=== PATIENT | female | born 1965 | race American Indian/Alaskan Native ===

== ENCOUNTER 2018-09-06 12:29 | Emergency (ER) | payer MEDICARE ==
[2018-09-06 12:49] VITALS: BP 157/77
--- NOTE | 2018-09-06 13:13 | Emergency Department Report ---
ED Dizziness HPI - General Chief Complaint: Medical Clearance Stated Complaint: DIZZY Time Seen by Provider: 09/06/18 13:01 Source: patient Mode of arrival: Ambulatory Limitations: No Limitations - History of Present Illness Initial Comments: Chief complaint "I had one of my attacks today." HPI Mrs. Pettit is a 53-year-old female who presents with lightheadedness. She explained that during during her group therapy, she felt shaky. She felt unsteady when she walks. She felt lightheaded. She's had these attacks over the last several years every few months or so. No previous history of stroke. She does have a history of hypertension depression bipolar affective disorder dyslipidemia. She is followed by new physician. Recently moved from [facility]. She has been noncompliant with her hypertension medicines. Complaint: lightheadedness -: Sudden Timing: sudden onset Description: lightheadedness History of Same: Yes Severity: mild Improves With: rest Worsens With: nothing Associated Symptoms: denies: chest pain, shortness of breath - Related Data Previous Rx's Medication Instructions Recorded Last Taken Type Losartan [Cozaar] 50 mg PO QDAY 30 Days #30 tablet 09/06/18 Unknown Rx Allergies Allergy/AdvReac Type Severity Reaction Status Date / Time No Known Allergies Allergy Unverified 09/06/18 12:38 ED Review of Systems ROS: Stated complaint: DIZZY Other details as noted in HPI Comment: All other systems reviewed and negative Constitutional: malaise. denies: fever Respiratory: denies: cough Cardiovascular: denies: chest pain Neurological: denies: headache ED Past Medical Hx - Past Medical History Previous Medical History?: Yes Hx Hypertension: Yes Hx Psychiatric Treatment: Yes (DEPRESSION/BI POLAR) Additional medical history: HIGH CHOLESTROL/ NEUROPATHY/ DEPRESSION /REFLUX SHUNT IN ABD AND HEAD - Surgical History Additional Surgical History: WEIGH LOSS SURGERY - Social History Smoking Status: Never Smoker Substance Use Type: None - Medications Home Medications: Home Medications Medication Instructions Recorded Confirmed Last Taken Type Losartan [Cozaar] 50 mg PO QDAY 30 Days #30 tablet 09/06/18 Unknown Rx ED Physical Exam - General Limitations: No Limitations General appearance: alert, in no apparent distress - Head Head exam: Present: atraumatic, normocephalic - Eye Eye exam: Present: normal appearance - ENT ENT exam: Present: mucous membranes moist - Neck Neck exam: Present: normal inspection. Absent: tenderness, meningismus - Respiratory Respiratory exam: Present: normal lung sounds bilaterally. Absent: respiratory distress, wheezes, rales, rhonchi - Cardiovascular Cardiovascular Exam: Present: regular rate, normal rhythm, normal heart sounds. Absent: systolic murmur, diastolic murmur, rubs, gallop - GI/Abdominal GI/Abdominal exam: Present: soft, normal bowel sounds. Absent: distended, tenderness, guarding, rebound - Extremities Exam Extremities exam: Present: normal inspection - Back Exam Back exam: Present: normal inspection - Neurological Exam Neurological exam: Present: alert, oriented X3, normal gait. Absent: motor sensory deficit - Psychiatric Psychiatric exam: Present: normal affect, normal mood - Skin Skin exam: Present: warm, dry, intact, normal color. Absent: rash ED Course Vital Signs 09/06/18 12:42 Temperature 97.6 F Pulse Rate 100 H Respiratory 20 Rate Blood Pressure 157/77 O2 Sat by Pulse 99 Oximetry ED Medical Decision Making - Medical Decision Making Patient presents to [facility]. No indication TIA/CVA/arrhythmia/ACS. Referred to special education professional referred to her personal PCP. I will provide a prescription for home medication losartan. Critical care attestation.: If time is entered above; I have spent that time in minutes in the direct care of this critically ill patient, excluding procedure time. ED Disposition Clinical Impression: Lightheadedness Disposition: DC-01 TO HOME OR SELFCARE Is pt being admited?: No Does the pt Need Aspirin: No Condition: Stable Instructions: Dizziness (ED), Lightheadedness (ED) Prescriptions: Losartan [Cozaar] 50 mg PO QDAY 30 Days #30 tablet Referrals: LULU SOLORIO MD [Staff Physician] - 3-5 Days
== END 2018-09-06 13:22 | disposition home or self-care (01) ==
LOC: ED 12:29
DX: R42 Dizziness and giddiness (principal); F31.9 Bipolar disorder, unspecified; E78.00 Pure hypercholesterolemia, unspecified; I10 Essential (primary) hypertension
CPT/HCPCS: 82962; 99283